=== PATIENT | female | born 1940 | race Caucasian/White ===

== ENCOUNTER 2017-02-24 18:06 | Inpatient (IN) | payer MEDICARE, OTHER ==
[~2017-02-24] VITALS: Ht 152.4 cm; Wt 61.2 kg
[2017-02-24] MEDS ORDERED: ALBU18HF2 IH (18:29)
[2017-02-24] MEDS ORDERED: QUET100T PO (18:29)
[2017-02-24] MEDS ORDERED: LORA1TAB PO (18:29)
[2017-02-24] MEDS ORDERED: DOCU-270 PO (18:29)
[2017-02-24] MEDS ORDERED: AZIT250T6 PO (18:29)
[2017-02-24] MEDS ORDERED: HYDR-548 PO (18:29)
[2017-02-24] MEDS ORDERED: TRAZ-144 PO (18:29)
[2017-02-24] MEDS ORDERED: DIVA125C PO (18:29)
[2017-02-24] MEDS ORDERED: MAGNESIUM HYDROXIDE 30 ML UDC PO PRN (18:30)
[2017-02-24] MEDS ORDERED: TEMAZEPAM 7.5 MG CAPSULE PO PRN (18:30)
[2017-02-24] MEDS ORDERED: FAMO20TA41 PO (18:31)
[2017-02-24] MEDS ORDERED: BETA5DRO3 EACHEYE (18:31)
[2017-02-24] MEDS ORDERED: DORZ10DR8 EACHEYE (18:31)
[2017-02-24] MEDS ORDERED: MAGN400O6 PO (18:31)
--- NOTE | 2017-02-24 19:06 | NUR ---
PT. ARRIVED IN THE UNIT VIA AMBULANCE AND TRANSPORTED VIA A GURNEY. PT. CAME FROM [facility]. PT. IS 76 YEARS OLD FEMALE ADMITTED [address] DTO [address] GD[address] ATKINSON NOTIFIED ABOUT THE ADMISSION AND GAVE ORDERS. V/S TAKEN AND CONTRABAND DONE AND ENDORSED TO THE NEXT SHIFT FOR THE COMPLETION OF ART ADMISSION.
--- NOTE | 2017-02-24 19:20 | NUR ---
ADMITTED 76 Y/O FEMALE FROM [facility] , ON 5150 HOLD, DTO AND GD, BASED ON HOLD, PATIENT IS VERY AGITATED W/ DEMENTIA. PATIENT IS YELLING AND SCREAMING THAT SHE'S WALKING OUT OF THE ER. ACCORDING TO THE CAREGIVER, PATIENT HAS BEEN INCREASINGLY AGITATED, HITTING HER, CHOKING HER AND THROWING CERAMIC PLATES AT HER. PATIENT HAS BEEN WANDERING OUTSIDE OF THE HOUSE. PATIENT ADMITTING DX. PSYCHOSIS AND MEDICAL DX. DEMENTIA AND OSTEOARTHRISTIS. UPON FACE TO FACE EVALUATION, PATIENT APPEARED ALERT AND ORIENTED X 1, ANXIOUS, PARANOID, EASILY AGITATED AND UNCOOPERATIVE. NO SOB, NO ACUTE DISTRESS, BREATHING EVEN AND UNLABORED, NO S/S OF PAIN AND DISCOMFORT, PATIENT REFUSED TO SIGN PAPER WORKS, BELONGINGS AND CONTRABAND INSPECTED AND PLACED ON THE LOCKED CABINET. NOTIFIED DR. JOE TO RECONCILE MEDICATION. NOTIFIED NIRAV GONZALEZ (NEXT OF KIN). WILL CONTINUE TO MONITOR V75DATC FOR SAFETY
[2017-02-24 20:00] VITALS: BP 121/92
[2017-02-24 22:12] VITALS: BP 120/58
[2017-02-25] MEDS: MAG HYDROX/AL HYDROX/SIMETH 30 ML UDC PO PRN (06:57)
--- NOTE | 2017-02-25 06:59 | NUR ---
GPS RN NOTE: PATIENT NOTED WITH EPISODES OF VOMITING MODERATE AMOUNT OF GREENISH LIQUID VOMITUS AFTER DIAPER CHANGE. PATIENT ALSO NOTED LARGE FORM SOFT BM. PATIENT C/O PAIN IN THE STOMACH AND FEELING SICK. V/S NM=679/77 P=107 R=20 T=98.8. MAALOX 30 CC GIVEN FOR STOMACH UPSET. KEPT CLEAN, DRY AND COMFORTABLE. WILL CONTINUE TO MONITOR
--- NOTE | 2017-02-25 07:13 | NUR ---
GPS RN NOTE: NOTIFIED NP. DOMENICO OROZCO AND RECEIVED AND ORDER OF ZOFRAN 4MG SL [id number] PRN FOR NAUSEA AND VOMITING NOTED AND CARRIED OUT.
[2017-02-25] MEDS ORDERED: ONDANSETRON 4 MG TAB.RAPDIS SL PRN (07:30)
[2017-02-25 08:48] VITALS: BP 131/90
[2017-02-25] MEDS: Z GUARD REMEDY 2 OZ OINT TP SCH ×2 (09:00→20:26)
[2017-02-25 12:19] LABS: ALBUMIN 4.6 g/dL (3.4-5.0); BILIRUBIN,TOTAL 2.8 mg/dL (0.2-1.0); CALCIUM, SERUM 10.3 mg/dL (8.5-10.1); CREATININE 1.1 mg/dL (0.6-1.3); POTASSIUM 4.1 mmol/L (3.5-5.1); TOTAL PROTEIN, SERUM 8.4 g/dL (6.4-8.2)
[2017-02-25] MEDS: DIVALPROEX SODIUM 125 MG CAP.SPRINK PO SCH ×2 (13:09→16:33)
[2017-02-25] MEDS: QUETIAPINE FUMARATE 25 MG TABLET PO SCH ×2 (13:09→16:33)
[2017-02-25 16:00] VITALS: BP 126/79
[2017-02-25] MEDS ORDERED: IV NS 0.9% 1,000 ML IV ONE (16:30)
--- NOTE | 2017-02-25 18:15 | NUR ---
[id number]: NOTIFIED DR. GARCIA THAT PT NEEDS MED RECON.
[2017-02-25 20:42] VITALS: BP 132/80
[2017-02-25] MEDS: TRAZODONE 50 MG TABLET PO SCH (21:08)
[2017-02-25] MEDS ORDERED: QUETIAPINE FUMARATE 100 MG TABLET PO SCH (22:00)
[2017-02-26 07:16] LABS: BASOPHILS % (AUTO) 0.3 % (0.0-2.0); EOSINOPHILS % (AUTO) 0.2 % (0.0-6.0); HEMATOCRIT 49 % (33-45); HEMOGLOBIN 16.9 g/dL (11.5-14.8); LYMPHOCYTES # (AUTO) 1.6 /CMM (0.8-4.8); LYMPHOCYTES % (AUTO) 14.9 % (20.0-44.0); MEAN CORPUSCULAR HEMOGLOBIN 31 PG (26.0-33.0); MEAN CORPUSCULAR HGB CONC 34 g/dl (31.0-36.0); MEAN CORPUSCULAR VOLUME 91 fL (82-100); MONOCYTES # (AUTO) 0.8 /CMM (0.1-1.30); MONOCYTES % (AUTO) 6.9 % (2.0-12.0); NEUTROPHILS # (AUTO) 8.6 /CMM (1.8-8.9); NEUTROPHILS % (AUTO) 77.7 % (43.0-81.0); PLATELET COUNT (AUTO) 251 /CMM (150-450); RDW COEFFICIENT OF VARIATION 13.4 (11.5-15.0); RED BLOOD CELL COUNT(AUTO) 5.43 MIL/uL (4.0-5.2)
[2017-02-26] MEDS ORDERED: ALBUTEROL FS 2.5 MG/0.5 ML VIAL.NEB NEB PRN (07:35)
[2017-02-26 07:40] LABS: MAGNESIUM 2.2 mg/dL (1.8-2.4); PHOSPHORUS 3.4 mg/dL (2.5-4.9)
[2017-02-26 07:45] LABS: CALCIUM, SERUM 9.2 mg/dL (8.5-10.1); CREATININE 0.7 mg/dL (0.6-1.3); POTASSIUM 4.1 mmol/L (3.5-5.1)
[2017-02-26 08:00] VITALS: BP 118/89
[2017-02-26] MEDS: QUETIAPINE FUMARATE 25 MG TABLET PO SCH ×4 (08:14→16:18)
[2017-02-26] MEDS: DIVALPROEX SODIUM 125 MG CAP.SPRINK PO SCH ×4 (08:14→16:18)
[2017-02-26] MEDS: DOCUSATE SODIUM 100 MG CAPSULE PO SCH (08:22)
[2017-02-26] MEDS: BETAXOLOL 0.25% EACHEYE SCH ×2 (09:00→16:18)
[2017-02-26] MEDS: DORZOLAMIDE OPTH 2% 10 ML BOTTLE EACHEYE SCH ×2 (09:00→21:42)
[2017-02-26] MEDS: Z GUARD REMEDY 2 OZ OINT TP SCH ×2 (09:00→21:45)
--- NOTE | 2017-02-26 15:51 | NUR ---
GPS RN NOTE: PATIENT WAS SEEN AND EXAMINE BY Yaya ACUÑA PT CONDITION LABS REPORTED TO DOMENICO Styles PT REFUSING TO EAT DRINKING ONLY NO NEW ORDERS AT THIS TIME
[2017-02-26 16:00] VITALS: BP 100/78
--- NOTE | 2017-02-26 16:19 | NUR ---
GPS RN NOTE: PATIENT IN THE ROOM SITTING IN BED WITH 1:1 SITTER AT THE SIDE PT VERBALLY ABUSIVE AND EASILY AGITATED SPIT UP ALL MEDICATIONS REFUSING TO TAKE THEM WILL CONTINUE MONITORING FOR SAFETY AND BEHAVIOR
[2017-02-26] MEDS: BOOST PLUS FOOD-CHOCLATE 237 ML BOX PO SCH (18:10)
[2017-02-26 21:05] VITALS: BP 112/80
[2017-02-26] MEDS: TRAZODONE 50 MG TABLET PO SCH (21:42)
[2017-02-26] MEDS: MUPIROCIN OINT 2% 22 GM TUBE SCH (21:42)
[2017-02-27 07:04] LABS: BASOPHILS % (AUTO) 0.1 % (0.0-2.0); EOSINOPHILS % (AUTO) 0.3 % (0.0-6.0); HEMATOCRIT 49 % (33-45); HEMOGLOBIN 16.5 g/dL (11.5-14.8); LYMPHOCYTES # (AUTO) 2.3 /CMM (0.8-4.8); LYMPHOCYTES % (AUTO) 19.2 % (20.0-44.0); MEAN CORPUSCULAR HEMOGLOBIN 31 PG (26.0-33.0); MEAN CORPUSCULAR HGB CONC 34 g/dl (31.0-36.0); MEAN CORPUSCULAR VOLUME 92 fL (82-100); MONOCYTES # (AUTO) 0.7 /CMM (0.1-1.30); MONOCYTES % (AUTO) 6.3 % (2.0-12.0); NEUTROPHILS # (AUTO) 8.7 /CMM (1.8-8.9); NEUTROPHILS % (AUTO) 74.1 % (43.0-81.0); PLATELET COUNT (AUTO) 267 /CMM (150-450); RDW COEFFICIENT OF VARIATION 13.4 (11.5-15.0); WHITE BLOOD COUNT (AUTO) 11.7 K/uL (4.3-11.0)
[2017-02-27 07:16] LABS: CALCIUM, SERUM 9.6 mg/dL (8.5-10.1); CREATININE 0.8 mg/dL (0.6-1.3); MAGNESIUM 1.9 mg/dL (1.8-2.4); PHOSPHORUS 3.1 mg/dL (2.5-4.9); POTASSIUM 3.8 mmol/L (3.5-5.1)
[2017-02-27 08:00] VITALS: BP 128/67
[2017-02-27] MEDS: DOCUSATE SODIUM 100 MG CAPSULE PO SCH (08:39)
[2017-02-27] MEDS: DIVALPROEX SODIUM 125 MG CAP.SPRINK PO SCH ×3 (08:39→16:25)
[2017-02-27] MEDS: QUETIAPINE FUMARATE 25 MG TABLET PO SCH ×3 (08:40→16:25)
[2017-02-27] MEDS: BOOST PLUS FOOD-CHOCLATE 237 ML BOX PO SCH ×2 (08:41→16:28)
[2017-02-27] MEDS: MUPIROCIN OINT 2% 22 GM TUBE SCH ×2 (08:41→21:15)
[2017-02-27] MEDS: DORZOLAMIDE OPTH 2% 10 ML BOTTLE EACHEYE SCH ×2 (08:41→21:15)
[2017-02-27] MEDS: BETAXOLOL 0.25% EACHEYE SCH ×2 (08:41→16:28)
[2017-02-27] MEDS: Z GUARD REMEDY 2 OZ OINT TP SCH ×2 (08:43→21:15)
--- NOTE | 2017-02-27 10:43 | NUR ---
[id number]: NOTIFIED DR. BULLOCK ABOUT LAB VALUES FOR TODAY: 02/27/17: WBC= 11.7, RBC=5.30, HGB= 16.5, HCT- 49, LYMPH %= 19.2, CHLORIDE= 110, ANION GAP= 16, BUN= 28. NO NEW ORDERS GIVEN AT THIS TIME.
--- NOTE | 2017-02-27 11:12 | NUR ---
MIGUEL received a voicemail from [facility] [phone] and she wants to discuss pt's care. MIGUEL will meet with pt. today and will call back.
[2017-02-27] MEDS: clonazePAM 0.5 MG TABLET PO PRN (14:40)
[2017-02-27 16:00] VITALS: BP 100/68
--- NOTE | 2017-02-27 16:28 | NUR ---
Initial discharge plan: Pt has been in an out of nursing homes and hospitals and recently was living with her partner/DPOA Suzi Anderson [phone] [place] [address] but unable to return at this time. Suzi is unable to take care of her and will not be able to accept her back home. SW will follow up with MD and will find appropriate placement for pt. SW will help form safe and proper discharge.
[2017-02-27 20:00] VITALS: BP 126/64
[2017-02-27] MEDS: TRAZODONE 50 MG TABLET PO SCH (22:47)
[2017-02-28 08:00] VITALS: BP 135/80
[2017-02-28] MEDS: QUETIAPINE FUMARATE 25 MG TABLET PO SCH ×3 (08:19→16:44)
[2017-02-28] MEDS: DIVALPROEX SODIUM 125 MG CAP.SPRINK PO SCH ×3 (08:19→16:44)
[2017-02-28] MEDS: DOCUSATE SODIUM 100 MG CAPSULE PO SCH (08:19)
[2017-02-28] MEDS: DORZOLAMIDE OPTH 2% 10 ML BOTTLE EACHEYE SCH ×2 (08:20→21:33)
[2017-02-28] MEDS: BETAXOLOL 0.25% EACHEYE SCH ×2 (08:21→16:47)
[2017-02-28] MEDS: MUPIROCIN OINT 2% 22 GM TUBE SCH ×2 (08:21→21:33)
[2017-02-28] MEDS: BOOST PLUS FOOD-CHOCLATE 237 ML BOX PO SCH ×2 (08:22→16:47)
[2017-02-28] MEDS: Z GUARD REMEDY 2 OZ OINT TP SCH ×2 (08:29→21:33)
--- NOTE | 2017-02-28 15:04 | NUR ---
MIGUEL faxed a referral to [facility] ([facility]) [address] [facility], [place] [address] . Will follow up with December from the facility . Addendum: 03/05/17 at 1039 by DENA RIVERA Per December from [facility], pt is accepted.
[2017-02-28 16:18] VITALS: BP 115/69
[2017-02-28 20:19] VITALS: BP 112/63
[2017-02-28 20:33] VITALS: BP 104/72
[2017-02-28] MEDS: ACETAMINOPHEN 325 MG TABLET PO PRN (20:44)
[2017-02-28] MEDS: clonazePAM 0.5 MG TABLET PO PRN (20:44)
[2017-02-28] MEDS: TRAZODONE 50 MG TABLET PO SCH (21:31)
[2017-03-01] MEDS: BETAXOLOL 0.25% EACHEYE SCH ×2 (08:25→17:24)
[2017-03-01] MEDS: DORZOLAMIDE OPTH 2% 10 ML BOTTLE EACHEYE SCH ×2 (08:25→20:20)
[2017-03-01] MEDS: DIVALPROEX SODIUM 125 MG CAP.SPRINK PO SCH ×2 (08:26→16:42)
[2017-03-01] MEDS: QUETIAPINE FUMARATE 25 MG TABLET PO SCH ×3 (08:26→16:42)
[2017-03-01] MEDS: DOCUSATE SODIUM 100 MG CAPSULE PO SCH (08:26)
[2017-03-01] MEDS: MUPIROCIN OINT 2% 22 GM TUBE SCH ×2 (08:26→20:20)
[2017-03-01 08:49] VITALS: BP 128/75
[2017-03-01] MEDS: BOOST PLUS FOOD-CHOCLATE 237 ML BOX PO SCH ×2 (09:27→17:24)
[2017-03-01] MEDS: Z GUARD REMEDY 2 OZ OINT TP SCH ×2 (10:29→20:20)
--- NOTE | 2017-03-01 12:38 | NUR ---
GPS/RN PATIENT REFUSED SEROQUEL 25 MG X 3, EXPLAINED RISKS AND BENEFITS, WILL CONTINUE TO ENCOURAGE TO COMPLY WITH MD REGIMEN.
--- NOTE | 2017-03-01 16:17 | NUR ---
Per pt's partner Suzi's request [phone] MIGUEL faxed referrals to [facility] [address] [facility] [address] and [facility] [address] [place] [address] . Will follow up Addendum: 03/02/17 at 1031 by DENA RIVERA Per Bertha from [facility], pt is not accepted due to her behavior. Addendum: 03/05/17 at 1026 by DENA RIVERA Telly Go from [facility], pt cannot be accepted due to chronic nicotine use.
[2017-03-01 16:22] VITALS: BP 96/74
[2017-03-01 20:00] VITALS: BP 105/61
--- NOTE | 2017-03-01 20:00 | NUR ---
RN NOTES: PER DAY EMILEE POOLE, RESULT OF TODAYS LAB WERE RELAYED TO DR BULLOCK, NO NEW ORDERS RECEIVED,
[2017-03-01] MEDS: clonazePAM 0.5 MG TABLET PO PRN (20:19)
--- NOTE | 2017-03-01 20:21 | NUR ---
prn klonopin: prn klonopin 0.25mg tab administered to the pt at this time, as pt agitated, sitter at bed side, vs taken and recorded, will continue to monitor
--- NOTE | 2017-03-01 20:35 | NUR ---
RN INITIAL NOTES: PT IN THE ROOM, A/O X1-2, WITH 1:1 SITTER AT BED SIDE, HIGH RISK FOR FALL,PT NOTED TO HAVE IMPULSIVE BEHAVIOR, , NOTED TO BE EASILY AGITATED, IRRITABLE, PARANOID, "I WILL ONLY EAT WHEN I GET HOME" PT VERBALIZED, PT DENIES ANY SUICIDAL IDEATION. PT TAKES ALL HER NIGHT MEDICATION. WILL CONTINUE TO MONITOR PT [id number] FOR SAFETY AND CHANGES IN BEHAVIOR
--- NOTE | 2017-03-01 20:40 | NUR ---
assessment: pt noted to have right fa iv access covered with kerlix, s/p 1l ns bolus given on
--- NOTE | 2017-03-01 21:05 | NUR ---
RN NOTES: CONTACTED DR CHAWLA REGARDING PT HAVIONG LOOSE STOOLS 5X ALREADY, PER MD TO GIVE IMODIUM 2MG PO Q4HR PRN
[2017-03-01] MEDS ORDERED: LOPERAMIDE HCL (2 MG CAP) 2 MG CAPSULE PO ONE (21:06)
[2017-03-01] MEDS: TRAZODONE 50 MG TABLET PO SCH (21:14)
--- NOTE | 2017-03-01 21:14 | NUR ---
PRN IMODIUM: PT HAD LOOSE STOOLS , 5BM, PRN IMODIUM 2MG CAP ADMINISTERED AT THIS TIME, ENCOURAGE PT TO INCREASE FLUID INTAKE, WILL CONTINUE TO MONITOR
[2017-03-01] MEDS ORDERED: LOPERAMIDE HCL (2 MG CAP) 2 MG CAPSULE PO PRN (21:30)
[2017-03-01 22:00] VITALS: BP 105/61
--- NOTE | 2017-03-01 22:00 | NUR ---
ASSESSMENT: NOTED PT'S HR ELEVATED, 122, RECHECK AFTER GIVING MEDICATION NOW ITS 100. PT CALM, APPEARS COMFORTABLE, WILL CONTINUE TO MONITOR
--- NOTE | 2017-03-02 | NUR ---
RN NOTES: PT AWAKE, OFFERED HER SLEEPING PILL, BUT PT REFUSED, YELLED AND SAY I DONT NEED IT, EDUCATE PT REGARDING RISK AND BENEFIT, WILL TRY TO OFFER AGAIN LATER
--- NOTE | 2017-03-02 01:00 | NUR ---
RN NOTES: OFFERED RESTORIL, PT SLEEPING PILL BUT PT REFUSED, STATED SHE DOESNT NEED ANYTHING AT THIS TIME AND TO LEAVE HER ALONE, EDUCATION PROVIDED TO THE PT, WILL CONTINUE TO MONITOR AND REASSESS
[2017-03-02 03:30] VITALS: BP 120/78
--- NOTE | 2017-03-02 03:30 | NUR ---
DRINK BOX MECHANIC: VS TAKEN AND RECORDED, PT CURRENTLY AGITATED, PT DENIES ANY HEAD ACHE DIZZINESS OR LIGHT HEADEDNESS, WHEN ASKED IF PT FEELS THAT HER HEART IS RACING, PT ANSWERED "NO", AND THAT SHE FEELS FINE, MARYBEL FORDE WITNESS, 1:1 SITTER, WILL GIVE PRN KLONOPIN, WILL CONTINUE TO MONITOR
[2017-03-02] MEDS: clonazePAM 0.5 MG TABLET PO PRN ×2 (03:46→20:06)
--- NOTE | 2017-03-02 03:47 | NUR ---
PRN KLONOPIN: PRN KLONOPIN 0.25 MG TAB ADMINISTERED TO THE PT AT THIS TIME FOR AGITATION, PT TRYING TO GET OUT OF BED STATING SHE WILL GO HOME NOW, WILL CONTINUE TO MONITOR AND REASSESS
[2017-03-02 06:05] VITALS: BP 127/74
--- NOTE | 2017-03-02 06:33 | NUR ---
RN CLOSING NOTES: PT IN BED, AWAKE, WITH PERIODS OF ON AND OFF AGITATION, UNCOOPERATIVE, WITH IMPULSIVE BEHAVIOR, PT HAS 1:1 SITTER AT BED SIDE, VS REMAINS STABLE, NEEDS ATTENDED, WILL ENDORSE TO DAY RN FOR DANUTA.
[2017-03-02 08:00] VITALS: BP 106/69
[2017-03-02] MEDS: BOOST PLUS FOOD-CHOCLATE 237 ML BOX PO SCH ×2 (08:30→17:34)
[2017-03-02] MEDS: DIVALPROEX SODIUM 125 MG CAP.SPRINK PO SCH ×2 (08:49→16:39)
[2017-03-02] MEDS: DOCUSATE SODIUM 100 MG CAPSULE PO SCH (08:49)
[2017-03-02] MEDS: QUETIAPINE FUMARATE 25 MG TABLET PO SCH ×2 (08:49→16:40)
[2017-03-02] MEDS: MUPIROCIN OINT 2% 22 GM TUBE SCH ×2 (08:55→21:12)
[2017-03-02] MEDS: DORZOLAMIDE OPTH 2% 10 ML BOTTLE EACHEYE SCH ×2 (08:56→21:12)
[2017-03-02] MEDS: BETAXOLOL 0.25% EACHEYE SCH ×2 (09:00→16:45)
[2017-03-02] MEDS: Z GUARD REMEDY 2 OZ OINT TP SCH ×2 (09:02→20:11)
[2017-03-02 16:00] VITALS: BP 125/74
[2017-03-02 20:00] VITALS: BP 116/53
[2017-03-02] MEDS: TRAZODONE 50 MG TABLET PO SCH (21:11)
[2017-03-03 08:00] VITALS: BP 112/76
[2017-03-03] MEDS: DOCUSATE SODIUM 100 MG CAPSULE PO SCH (08:34)
[2017-03-03] MEDS: DIVALPROEX SODIUM 125 MG CAP.SPRINK PO SCH ×2 (08:34→16:27)
[2017-03-03] MEDS: QUETIAPINE FUMARATE 25 MG TABLET PO SCH ×3 (08:34→16:27)
[2017-03-03] MEDS: DORZOLAMIDE OPTH 2% 10 ML BOTTLE EACHEYE SCH ×2 (08:35→21:38)
[2017-03-03] MEDS: BETAXOLOL 0.25% EACHEYE SCH ×2 (08:35→16:29)
[2017-03-03] MEDS: Z GUARD REMEDY 2 OZ OINT TP SCH ×2 (08:35→21:37)
[2017-03-03] MEDS: MUPIROCIN OINT 2% 22 GM TUBE SCH ×2 (08:35→21:38)
[2017-03-03] MEDS: BOOST PLUS FOOD-CHOCLATE 237 ML BOX PO SCH ×2 (08:41→16:35)
--- NOTE | 2017-03-03 19:30 | NUR ---
GPS RN NOTE, RECEIVED PATIENT AWAKE AND IN BED, NO S/S OR COMPLAINTS OF PAIN AT THIS TIME. PATIENT IS DISPLAYING NO S/S OF APPARENT DISTRESS AT THIS TIME. PATIENT BREATHING IS UNLABORED WITH EQUAL RISE AND FALL OF THE CHEST. PATIENT IS ALERT AND ORIENTED X 1 ON ROOM AIR WITH A SPO2 95%. PATIENT COMPLIANT WITH MEDICATION, DEPRESSED, UNCOOPERATIVE, PARANOID, GUARDED, CONFUSED, AND NEEDS REORIENTATION. PATIENT HAS A 1 TO 1 SITTER FOR FALL. PATIENT IS ON ISOLATION FOR MRSA STRICT PRECAUTIONS UPHELD. PATIENT DENIES SUICIDE AND HOMICIDAL IDEATIONS AT THIS TIME. PATIENT ASSISTED WITH TURNING AND REPOSITIONING Q2HR AND PRN FOR COMFORT AND CIRCULATION. PATIENT HAS NO NEEDS AT THIS TIME. PATIENT EDUCATED ON THE USE OF THE CALL FLORES. PATIENT BED SIDE RAILS UP X2 FOR SAFETY, BED IS LOCKED AND LOW WILL CONTINUE TO MONITOR AND MAINTAIN SAFETY.
[2017-03-03 20:00] VITALS: BP 96/70
[2017-03-03] MEDS: TRAZODONE 50 MG TABLET PO SCH (21:39)
[2017-03-04 08:00] VITALS: BP 112/67
[2017-03-04] MEDS: DORZOLAMIDE OPTH 2% 10 ML BOTTLE EACHEYE SCH ×2 (09:00→20:32)
[2017-03-04] MEDS: DOCUSATE SODIUM 100 MG CAPSULE PO SCH (09:21)
[2017-03-04] MEDS: QUETIAPINE FUMARATE 25 MG TABLET PO SCH ×3 (09:21→16:49)
[2017-03-04] MEDS: DIVALPROEX SODIUM 125 MG CAP.SPRINK PO SCH ×2 (09:22→16:49)
[2017-03-04] MEDS: BOOST PLUS FOOD-CHOCLATE 237 ML BOX PO SCH ×2 (09:22→16:49)
[2017-03-04] MEDS: BETAXOLOL 0.25% EACHEYE SCH ×2 (09:27→16:55)
[2017-03-04] MEDS: MUPIROCIN OINT 2% 22 GM TUBE SCH ×2 (09:31→20:32)
[2017-03-04] MEDS: Z GUARD REMEDY 2 OZ OINT TP SCH ×2 (09:31→20:33)
[2017-03-04 16:08] VITALS: BP 100/64
[2017-03-04] MEDS: ACETAMINOPHEN 325 MG TABLET PO PRN (20:31)
[2017-03-04 20:45] VITALS: BP 95/75
[2017-03-04] MEDS: TRAZODONE 50 MG TABLET PO SCH (21:50)
[2017-03-05 08:00] VITALS: BP 102/75
[2017-03-05] MEDS: QUETIAPINE FUMARATE 25 MG TABLET PO SCH (08:55)
[2017-03-05] MEDS: DOCUSATE SODIUM 100 MG CAPSULE PO SCH (08:56)
[2017-03-05] MEDS: clonazePAM 0.5 MG TABLET PO PRN (08:56)
[2017-03-05] MEDS: DIVALPROEX SODIUM 125 MG CAP.SPRINK PO SCH ×3 (08:56→16:31)
[2017-03-05] MEDS: Z GUARD REMEDY 2 OZ OINT TP SCH ×2 (09:01→20:22)
[2017-03-05] MEDS: MUPIROCIN OINT 2% 22 GM TUBE SCH ×2 (09:02→20:20)
[2017-03-05] MEDS: BETAXOLOL 0.25% EACHEYE SCH ×2 (09:02→16:54)
[2017-03-05] MEDS: DORZOLAMIDE OPTH 2% 10 ML BOTTLE EACHEYE SCH ×2 (09:02→20:21)
[2017-03-05] MEDS: BOOST PLUS FOOD-CHOCLATE 237 ML BOX PO SCH ×2 (09:05→16:32)
[2017-03-05] MEDS: ACETAMINOPHEN 325 MG TABLET PO PRN (15:17)
[2017-03-05 16:26] VITALS: BP 100/66
[2017-03-05] MEDS: QUETIAPINE FUMARATE 100 MG TABLET PO SCH (16:32)
[2017-03-05 20:52] VITALS: BP 96/60
[2017-03-05] MEDS: TRAZODONE 50 MG TABLET PO SCH (21:15)
[2017-03-06 08:00] VITALS: BP 113/71
[2017-03-06] MEDS: BOOST PLUS FOOD-CHOCLATE 237 ML BOX PO SCH ×2 (08:00→17:56)
[2017-03-06] MEDS: DIVALPROEX SODIUM 125 MG CAP.SPRINK PO SCH ×2 (09:00→17:53)
[2017-03-06] MEDS: DOCUSATE SODIUM 100 MG CAPSULE PO SCH (09:00)
[2017-03-06] MEDS: QUETIAPINE FUMARATE 100 MG TABLET PO SCH ×2 (09:00→17:53)
[2017-03-06] MEDS: DORZOLAMIDE OPTH 2% 10 ML BOTTLE EACHEYE SCH ×2 (09:03→21:20)
[2017-03-06] MEDS: BETAXOLOL 0.25% EACHEYE SCH ×2 (09:03→17:56)
[2017-03-06] MEDS: Z GUARD REMEDY 2 OZ OINT TP SCH ×2 (09:04→21:21)
[2017-03-06 16:00] VITALS: BP 100/66
[2017-03-06] MEDS: clonazePAM 0.5 MG TABLET PO PRN (19:47)
--- NOTE | 2017-03-06 19:47 | NUR ---
GPS RN NOTE, PATIENT HAS A COMPLAINT OF FEELING ANXIOUS AND WOULD LIKE MEDICATION TO HELP CALM HER DOWN. PATIENT VITAL SIGNS ARE STABLE. GAVE KLONOPIN 0.25MG PO Q4HR PRN ORDERED. WILL REASSESS FOR ANXIETY AND I WILL CONTINUE TO MONITOR THIS PATIENT.
[2017-03-06 19:59] VITALS: BP 106/77
[2017-03-06] MEDS: TRAZODONE 50 MG TABLET PO SCH (21:20)
[2017-03-07 07:19] LABS: BASOPHILS % (AUTO) 0.3 % (0.0-2.0); EOSINOPHILS # (AUTO) 0.2 /CMM (0.0-0.7); EOSINOPHILS % (AUTO) 3.5 % (0.0-6.0); HEMATOCRIT 42 % (33-45); HEMOGLOBIN 14.6 g/dL (11.5-14.8); LYMPHOCYTES # (AUTO) 1.9 /CMM (0.8-4.8); LYMPHOCYTES % (AUTO) 28.5 % (20.0-44.0); MEAN CORPUSCULAR HEMOGLOBIN 31 PG (26.0-33.0); MEAN CORPUSCULAR HGB CONC 34 g/dl (31.0-36.0); MEAN CORPUSCULAR VOLUME 90 fL (82-100); MONOCYTES # (AUTO) 0.6 /CMM (0.1-1.30); MONOCYTES % (AUTO) 9.3 % (2.0-12.0); NEUTROPHILS # (AUTO) 3.9 /CMM (1.8-8.9); NEUTROPHILS % (AUTO) 58.4 % (43.0-81.0); PLATELET COUNT (AUTO) 228 /CMM (150-450); RDW COEFFICIENT OF VARIATION 12.6 (11.5-15.0); WHITE BLOOD COUNT (AUTO) 6.7 K/uL (4.3-11.0)
[2017-03-07 07:31] LABS: CALCIUM, SERUM 8.9 mg/dL (8.5-10.1); CARBON DIOXIDE 23 mmol/L (21-32); CHLORIDE 109 mmol/L (98-107); CREATININE 0.7 mg/dL (0.6-1.3); GLUCOSE 95 mg/dL (74-106); POTASSIUM 3.7 mmol/L (3.5-5.1); SODIUM SERUM 143 mmol/L (136-145); UREA NITROGEN, BLOOD 20 mg/dL (7-18)
[2017-03-07 08:00] VITALS: BP 108/79
--- NOTE | 2017-03-07 08:30 | NUR ---
yelling out to sales architect i need a hospital,i have chest pain.vs taken 104/78,98.2,p135,rr 18pox 95%.rn in to tv room to check on pt. states heaviness lt.chest,non-radiating.refuses pain med.
--- NOTE | 2017-03-07 08:40 | NUR ---
call out to dr. hall-orders given.
[2017-03-07] MEDS: MAG HYDROX/AL HYDROX/SIMETH 30 ML UDC PO PRN (08:56)
--- NOTE | 2017-03-07 09:00 | NUR ---
bp 113/65,heart rate 125.
--- NOTE | 2017-03-07 09:30 | NUR ---
ekg,troponin done.
[2017-03-07] MEDS: BOOST PLUS FOOD-CHOCLATE 237 ML BOX PO SCH ×2 (10:09→17:00)
[2017-03-07] MEDS: DIVALPROEX SODIUM 125 MG CAP.SPRINK PO SCH ×3 (10:10→17:18)
[2017-03-07] MEDS: BETAXOLOL 0.25% EACHEYE SCH ×2 (10:10→17:17)
[2017-03-07] MEDS: DORZOLAMIDE OPTH 2% 10 ML BOTTLE EACHEYE SCH (10:10)
[2017-03-07] MEDS: DOCUSATE SODIUM 100 MG CAPSULE PO SCH (10:10)
[2017-03-07] MEDS: QUETIAPINE FUMARATE 100 MG TABLET PO SCH ×2 (10:11→17:18)
[2017-03-07] MEDS: Z GUARD REMEDY 2 OZ OINT TP SCH (11:01)
--- NOTE | 2017-03-07 11:20 | NUR ---
discharge photos done.
--- NOTE | 2017-03-07 11:59 | NUR ---
dr. cooper here,additional orders written.
[2017-03-07] MEDS: ACETAMINOPHEN 325 MG TABLET PO PRN (14:04)
--- NOTE | 2017-03-07 14:04 | NUR ---
medicated for upper back pain with tylenol 650 mg po.
--- NOTE | 2017-03-07 14:53 | NUR ---
Discharge note: Pt will discharge to [facility] ([facility]) [address] [place] [address] via [facility]. Partner/DPBRANDEN Archuletaa Justin [phone] was notified and agreed with discharge plan. Pt. is calm and cooperative and denies suicidal/homicidal ideations at this time. Discharge paperwork has been signed and discharge instructions will be provided to the accepting facility.
--- NOTE | 2017-03-07 15:00 | NUR ---
second mrsa smear done today.
--- NOTE | 2017-03-07 15:20 | NUR ---
two more troponins done-awaiting results as possibly pt. still to be discharged today.
[2017-03-07 16:00] VITALS: BP 130/66
--- NOTE | 2017-03-07 17:35 | NUR ---
given all instructions,all papers given to amb. drivers,along with belongings.report to facility.1700 meds given prior to dc.denies suicidal or homicidal ideation.taken to f[facility]acility via amb.
== END 2017-03-07 17:35 | DRG 885 ==
LOC: GPS 18:06
PROVIDERS: ADMIT Psychiatry & Neurology Psychiatry; ATTEND Internal Medicine
DX: F29 Unspecified psychosis not due to a substance or known physiological condition (principal); N17.0 Acute kidney failure with tubular necrosis; N18.9 Chronic kidney disease, unspecified; E86.0 Dehydration; E88.09 Other disorders of plasma-protein metabolism, not elsewhere classified; F03.90 Unspecified dementia, unspecified severity, without behavioral disturbance, psychotic disturbance, mood disturbance, and anxiety; F17.200 Nicotine dependence, unspecified, uncomplicated; F39 Unspecified mood [affective] disorder; H40.9 Unspecified glaucoma; J44.9 Chronic obstructive pulmonary disease, unspecified; Z79.899 Other long term (current) drug therapy; E80.6 Other disorders of bilirubin metabolism; Z73.6 Limitation of activities due to disability; M94.0 Chondrocostal junction syndrome [Tietze]; R73.9 Hyperglycemia, unspecified
CPT/HCPCS: 36415; 71010-TC; 80048-TC; 80053-TC; 83735-TC; 84100-TC; 84484-TC; 85025-TC; 87081-TC; A6402; J7030; Q0162

== ENCOUNTER → 2017-05-20 | Emergency (ER) | payer MEDICARE, OTHER ==
[~2017-05-20] VITALS: Ht 167.6 cm; Wt 48.1 kg
[~2017-05-20] MED LIST: ALBU18HF2 IH; AZIT250T6 PO; BETA5DRO3 EACHEYE; DOCU-270 PO; DORZ10DR8 EACHEYE; FAMO20TA41 PO; HYDR-548 PO; MAGN400O6 PO; QUET100T PO; TRAZ-144 PO
--- NOTE | 2017-05-20 22:56 | NUR ---
pt biba fr [facility] for rt elbow skin tear w/ witnessed fall out of w/c x1600 today, no ko, sent by PCP for CT head. AOx2 w/ resp even & unlabored, c/o lower back pain w/ nad noted. pt on continuous monitoring w/ bed low to ground & siderails up.
--- NOTE | 2017-05-20 23:53 | NUR ---
pt sent to [facility] via [facility].
--- NOTE | 2017-05-21 00:13 | NUR ---
pt back fr CT.
--- NOTE | 2017-05-21 00:55 | NUR ---
CALLED [facility] FOR BLS TRANSPORT BACK TO FACILITY. ETA 1 HOUR
[2017-05-21 02:05] VITALS: BP 131/80
== END | disposition home or self-care (01) ==
LOC: ER 22:06
DX: S00.03XA Contusion of scalp, initial encounter (principal); F03.90 Unspecified dementia, unspecified severity, without behavioral disturbance, psychotic disturbance, mood disturbance, and anxiety; F41.9 Anxiety disorder, unspecified; H40.9 Unspecified glaucoma; F31.9 Bipolar disorder, unspecified; G47.00 Insomnia, unspecified; Z88.8 Allergy status to other drugs, medicaments and biological substances; W01.198A Fall on same level from slipping, tripping and stumbling with subsequent striking against other object, initial encounter; Y93.89 Activity, other specified; Y92.89 Other specified places as the place of occurrence of the external cause; Y99.9 Unspecified external cause status
CPT/HCPCS: 70450; 99284; A4606; Z7610

== ENCOUNTER 2017-11-07 22:28 | Inpatient (IN) | payer MEDICARE, OTHER ==
[~2017-11-07] VITALS: Ht 167.6 cm; Wt 59.9 kg
[~2017-11-07 22:28] MED LIST changes: +AZIT250T13 PO; -AZIT250T6 PO
[2017-11-08] VITALS: BP 145/86
--- NOTE | 2017-11-08 | NUR ---
GPS SCREEN REPAIRER CRUSHER NOTES ADMITTED THIS 77 YEAR OLD FEMALE ON 5150 HOLD FOR GRAVE DISABILITY. PER HOLD, PATIENT WAS YELLING, BELLIGERENT, NON COMPLIANT AND AGITATED AT HIS BOARD AND CARE. UPON FACE TO FACE PATIENT WAS AGITATED AND ANGRY. DOES NOT TALK BUT YELLS ALL THE TIME. HOWEVER PATIENT WAS COMPLIANT DESPITE BEING ANGRY. VITAL SIGNS CHECKED AND RECORDED. AFEBRILE. PATIENTS BELONGINGS CHECKED FOR CONTRABAND ITEMS. CONTRABAND ITEMS PLACED AT CONTRABAND LOCKER. FULL BODY CHECK AND SKIN ASSESSMENT DONE. BRUISES NOTED ON PATENTS LEFT CHEEK, RIGHT AND LEFT ARMS AND COCCYX. A SCAB WAS ALSO NOTED ON PATIENTS RIGHT ELBOW. PER PATIENT SHE RECENTLY HAD A FALL. PATIENT IS AMBULATORY. ADMISSION PROCESS COMPLETED. WILL CALL NEXT OF KIN IN THE MORNING. WILL DO MRSA SWAB IN AM WELL.
[2017-11-08] MEDS ORDERED: MAG HYDROX/AL HYDROX/SIMETH 30 ML UDC PO PRN (00:30)
[2017-11-08] MEDS ORDERED: MAGNESIUM HYDROXIDE 30 ML UDC PO PRN ×2 (00:30→07:00)
[2017-11-08] MEDS ORDERED: ACETAMINOPHEN 325 MG TABLET PO PRN (00:30)
[2017-11-08] MEDS: TEMAZEPAM 7.5 MG CAPSULE PO PRN ×2 (01:07→22:00)
--- NOTE | 2017-11-08 06:01 | NUR ---
GPS RN NOTES DR. ATKINSON NOTIFIED OF THIS ADMISSION EARLIER BY THAO HEBERT. SPOKE WITH DR. CHAWLA AT O600 REGARDING MED. RECON. CALL PLACED TO NIRAV PATE, NEXT OF KIN, NO ANSWER. VOICEMAIL LEFT ASKING FOR A CALL BACK. WILL ENDORSE TO DAY SHIFT.
--- NOTE | 2017-11-08 06:34 | NUR ---
GPS RN NOTES NIRAV PATE GAVE US A CALL BACK. STATED SHE IS NO LONGER THE PERSON TO BE CALLED AND SHE IS NO LONGER IN THE STATE. CALL MADE TO ROLANDO (DAUGHTER). DAUGHTER MADE AWARE OF THIS ADMISSION.
[2017-11-08 08:00] VITALS: BP 118/62
[2017-11-08] MEDS: clonazePAM 0.5 MG TABLET PO PRN (08:41)
[2017-11-08] MEDS: DOCUSATE SODIUM 100 MG CAPSULE PO SCH ×2 (08:41→08:43)
[2017-11-08] MEDS: FAMOTIDINE (20 MG) 20 MG TABLET PO SCH (08:41)
--- NOTE | 2017-11-08 11:02 | NUR ---
Dr. Bartholomew in the unit notified about the EKG and chest X-Ray results.
[2017-11-08] MEDS: DORZOLAMIDE OPTH 2% 10 ML BOTTLE EACHEYE SCH ×2 (11:13→16:40)
--- NOTE | 2017-11-08 14:15 | NUR ---
Initial Discharge Note: Patient came from a board and care but, according to patient's conservator, patient is unable to return because the conservator feels that the board and care is unable to care for her. MIGUEL called and spoke with the conservator, Susana DupreeMiriam, . Susana stated that perhaps a SNF is necessary for this patient. Susana stated that she will be in to see the patient tomorrow and would like to further discuss the case with SW. Placement is necessary for patient. SW to communicate with MD and to secure safe and proper placement for patient.
--- NOTE | 2017-11-08 14:24 | NUR ---
MIGUEL received a call from patient's daughter, Carleen Tam [phone]. Carleen stated that she wants her mom back in the board and care and that, according to her, the board and care is willing to take her back. MIGUEL asked Carleen to provide an address and telephone number for the board and care. Carleen was able to provide the address [[id number] [place] [address]], but not the phone number.
[2017-11-08] MEDS: BETAXOLOL HCL 0.5% EACHEYE SCH ×2 (15:18→16:40)
--- NOTE | 2017-11-08 16:41 | NUR ---
BETAXOLOL EYE DROP NOT GIVEN BECAUSE THE FIRST DOSE GIVEN AT 1518.
[2017-11-08] MEDS ORDERED: diphenhydrAMINE HCL 50 MG/ML VIAL IM STA (17:20)
[2017-11-08] MEDS ORDERED: LORAZEPAM INJ 2 MG/ML VIAL IM STA (17:20)
[2017-11-08] MEDS ORDERED: OLANZAPINE 10 MG VIAL IM STA (17:20)
--- NOTE | 2017-11-08 17:20 | NUR ---
Pt. threatened other pt. with a walker, highly agitated, aggressive screaming, verbally abusive to staffs and non-redirectable. Dr. Trejo made aware and ordered Ativan 1 mg IM x1, Benadryl 25 mg IM x1 and Zyprexa 5 mg IM x1.
--- NOTE | 2017-11-08 17:34 | NUR ---
Zyprexa 5 mg IM, Ativan 1 mg IM and Zyprexa 5 mg IM given on the right gluteus.
[2017-11-08 20:00] VITALS: BP 115/74
[2017-11-08] MEDS: TRAZODONE 50 MG TABLET PO SCH (22:00)
[2017-11-08] MEDS: QUETIAPINE FUMARATE 100 MG TABLET PO SCH (22:00)
[2017-11-09] MEDS: FAMOTIDINE (20 MG) 20 MG TABLET PO SCH (07:30)
[2017-11-09 08:00] VITALS: BP 112/82
--- NOTE | 2017-11-09 08:07 | NUR ---
WOUND CARE CONSULT WOUND CARE RECEIVED CONSULT FOR RIGHT ELBOW SCAB. WOUND CARE WILL DEFER TO SURGICAL TEAM FOR CONSULT AND TREATMENT PLANS THEY ARE CURRENTLY FOLLOWING. PATIENT WITH DYAN AT 22.
[2017-11-09] MEDS: BETAXOLOL HCL 0.5% EACHEYE SCH ×2 (08:32→17:24)
[2017-11-09] MEDS: DORZOLAMIDE OPTH 2% 10 ML BOTTLE EACHEYE SCH ×2 (08:32→17:24)
[2017-11-09] MEDS: DOCUSATE SODIUM 100 MG CAPSULE PO SCH (08:49)
[2017-11-09] MEDS: clonazePAM 0.5 MG TABLET PO PRN ×2 (15:54→21:12)
[2017-11-09] MEDS: HYDROCODONE/APAP 10/325MG 1 EA TABLET PO PRN (15:55)
[2017-11-09 16:08] VITALS: BP 120/74
[2017-11-09 17:21] LABS: APPEARANCE,URINE CLEAR (CLEAR); BILIRUBIN,URINE NEGATIVE (NEGATIVE); BLOOD, URINE NEGATIVE Ery/uL (NEGATIVE); COLOR,URINE YELLOW (YELLOW); KETONES,URINE NEGATIVE (NEGATIVE); LEUKOCYTE ESTERASE ,URINE NEGATIVE (NEGATIVE); NITRITE, URINE NEGATIVE (NEGATIVE); PH,URINE 6.5 (5.0-8.0); PROTEIN,URINE NEGATIVE (NEGATIVE); UGLUCOSE NEGATIVE (NEGATIVE); UROBILINOGEN,URINE 0.2 EU/dL (0.2)
[2017-11-09 20:00] VITALS: BP 103/65
[2017-11-09] MEDS: QUETIAPINE FUMARATE 100 MG TABLET PO SCH (21:54)
[2017-11-09] MEDS: TRAZODONE 50 MG TABLET PO SCH (21:54)
[2017-11-10] MEDS: clonazePAM 0.5 MG TABLET PO PRN (07:03)
[2017-11-10] MEDS: FAMOTIDINE (20 MG) 20 MG TABLET PO SCH (07:30)
[2017-11-10 08:00] VITALS: BP 132/62
[2017-11-10] MEDS: DOCUSATE SODIUM 100 MG CAPSULE PO SCH (08:33)
[2017-11-10] MEDS: BETAXOLOL HCL 0.5% EACHEYE SCH ×2 (08:33→16:56)
[2017-11-10] MEDS: DORZOLAMIDE OPTH 2% 10 ML BOTTLE EACHEYE SCH ×2 (08:34→16:56)
--- NOTE | 2017-11-10 11:35 | NUR ---
PT. IS HIGHLY AGITATED, AGGRESSIVE, THROWING A WALKER AND PITCHER OF WATER TO STAFFS, VERBALLY ABUSIVE TO STAFFS, YELLING AND SCREAMING AND NOT FOLLOWING DIRECTIONS. DR. VELAZQUEZ GAVE AN ORDER OF ZYREXA 7.5 MG X1 AND ORDERED 1:1 FOR BEHAVIOR AND HIGHLY FALL RISK.
[2017-11-10] MEDS ORDERED: OLANZAPINE 10 MG VIAL IM ONE (12:00)
--- NOTE | 2017-11-10 12:00 | NUR ---
GPS/RN ZYREXA 7.5 MG IM ADMINISTERED ORDERED
[2017-11-10 16:00] VITALS: BP 103/72
[2017-11-10] MEDS: HYDROCODONE/APAP 10/325MG 1 EA TABLET PO PRN (18:57)
[2017-11-10 20:00] VITALS: BP 143/83
[2017-11-10] MEDS: MUPIROCIN OINT 2% 22 GM TUBE SCH (20:07)
[2017-11-10] MEDS: TEMAZEPAM 7.5 MG CAPSULE PO PRN ×2 (20:34→21:16)
--- NOTE | 2017-11-10 20:35 | NUR ---
RESTORIL 7.5MG GIVEN FOR INSOMNIA, WILL CONTINUE TO MONITOR .
[2017-11-10] MEDS: QUETIAPINE FUMARATE 100 MG TABLET PO SCH (21:15)
[2017-11-10] MEDS: TRAZODONE 50 MG TABLET PO SCH (21:16)
[2017-11-11] MEDS: FAMOTIDINE (20 MG) 20 MG TABLET PO SCH ×2 (07:30→08:32)
[2017-11-11 08:18] VITALS: BP 138/60
[2017-11-11] MEDS: DOCUSATE SODIUM 100 MG CAPSULE PO SCH ×2 (08:32→08:39)
[2017-11-11] MEDS: MUPIROCIN OINT 2% 22 GM TUBE SCH ×2 (08:34→21:33)
[2017-11-11] MEDS: BETAXOLOL HCL 0.5% EACHEYE SCH ×2 (08:35→16:32)
[2017-11-11] MEDS: DORZOLAMIDE OPTH 2% 10 ML BOTTLE EACHEYE SCH ×2 (08:35→16:32)
[2017-11-11] MEDS: clonazePAM 0.5 MG TABLET PO PRN (09:34)
--- NOTE | 2017-11-11 09:34 | NUR ---
[id number]: GAVE KLONOPIN 0.5 MG PO DUE TO INCREASED ANXIETY UPON PT REQUEST AND WILL CONTINUE TO MONITOR FOR EFFECTIVENESS OF MEDICATION.
[2017-11-11] MEDS: HYDROCODONE/APAP 10/325MG 1 EA TABLET PO PRN (11:47)
--- NOTE | 2017-11-11 11:47 | NUR ---
[id number]-[id number]: GAVE NORCO 10/325 MG PO DUE TO GENERALIZED PAIN 05/10 UPON PT REQUEST AND WILL CONTINUE TO MONITOR FOR EFFECTIVENESS OF MEDICATION.
[2017-11-11] MEDS: BENZTROPINE MESYLATE (1 MG) 1 MG TABLET PO SCH ×2 (12:40→16:34)
[2017-11-11] MEDS: risperiDONE 1 MG TABLET PO SCH (16:34)
[2017-11-11 16:50] VITALS: BP 100/58
[2017-11-11] MEDS: LIDOCAINE 5% (PATCH) 1 EA PATCH TP SCH (17:16)
[2017-11-11 18:35] LABS: BASOPHILS % (AUTO) 0.5 % (0.0-2.0); EOSINOPHILS # (AUTO) 0.1 /CMM (0.0-0.7); HEMATOCRIT 40 % (33-45); HEMOGLOBIN 13.8 g/dL (11.5-14.8); LYMPHOCYTES # (AUTO) 1.7 /CMM (0.8-4.8); LYMPHOCYTES % (AUTO) 32.9 % (20.0-44.0); MEAN CORPUSCULAR HEMOGLOBIN 31 PG (26.0-33.0); MEAN CORPUSCULAR HGB CONC 34 g/dl (31.0-36.0); MEAN CORPUSCULAR VOLUME 90 fL (82-100); MONOCYTES # (AUTO) 0.6 /CMM (0.1-1.30); MONOCYTES % (AUTO) 10.9 % (2.0-12.0); NEUTROPHILS # (AUTO) 2.8 /CMM (1.8-8.9); NEUTROPHILS % (AUTO) 53.7 % (43.0-81.0); PLATELET COUNT (AUTO) 263 /CMM (150-450); RDW COEFFICIENT OF VARIATION 13.7 (11.5-15.0); RED BLOOD CELL COUNT(AUTO) 4.47 MIL/uL (4.0-5.2); WHITE BLOOD COUNT (AUTO) 5.2 K/uL (4.3-11.0)
[2017-11-11 18:43] LABS: CALCIUM, SERUM 8.8 mg/dL (8.5-10.1); CARBON DIOXIDE 24 mmol/L (21-32); CHLORIDE 107 mmol/L (98-107); CREATININE 0.9 mg/dL (0.6-1.3); GLUCOSE 132 mg/dL (74-106); POTASSIUM 4.1 mmol/L (3.5-5.1); SODIUM SERUM 140 mmol/L (136-145); UREA NITROGEN, BLOOD 22 mg/dL (7-18)
[2017-11-11 19:54] VITALS: BP 118/74
[2017-11-11] MEDS: TRAZODONE 50 MG TABLET PO SCH (21:32)
[2017-11-11] MEDS: QUETIAPINE FUMARATE 100 MG TABLET PO SCH (21:32)
[2017-11-11] MEDS: NITROFURANTOIN/NITROFURAN MAC 100 MG CAPSULE PO SCH (21:32)
--- NOTE | 2017-11-12 01:09 | NUR ---
Pt has been very easily irritable, verbally abusive at times, & unpredictable but med compliant w/o any promptings.
--- NOTE | 2017-11-12 07:30 | NUR ---
[id number]: PT IS ACCUSATORY TOWARDS STAFF, FABRICATING STORIES, UNCOOPERATIVE WITH STAFF, NON-COMPLIANT, NON-REDIRECTABLE, UNABLE TO FOLLOW COMMANDS, VERBALLY ABUSIVE TOWARDS, USING PROFANITIES. WILL CONTINUE TO MONITOR FOR SAFETY AND BEHAVIOR EVERY 15 MINUTES.
[2017-11-12 08:00] VITALS: BP 100/68
[2017-11-12] MEDS ORDERED: OLANZAPINE 10 MG VIAL IM STA ×2 (08:26→10:57)
[2017-11-12] MEDS ORDERED: diphenhydrAMINE HCL 50 MG/ML VIAL IM STA ×2 (08:26→10:57)
[2017-11-12] MEDS ORDERED: LORAZEPAM INJ 2 MG/ML VIAL IM STA ×2 (08:26→10:57)
--- NOTE | 2017-11-12 08:26 | NUR ---
[id number]: PT IS ANXIOUS, RESTLESS, VERBALLY ABUSIVE TOWARDS STAFF, USING PROFANITIES, UNCOOPERATIVE WITH STAFF, THREW A WALKER TOWARDS STAFF. NOTIFIED DR. ATKINSON ABOUT PT'S BEHAVIOR AND DR. ATKINSON ORDERED ZYPREXA 5 MG IM, ATIVAN 1 MG IM, BENADRYL 25 MG.
--- NOTE | 2017-11-12 08:30 | NUR ---
RN-CO: PATIENT TOOK PO AM MEDICATIONS AND CALMER . PROMISED SHE WILL BEHAVE. SHOT WAS NOT GIVEN.
[2017-11-12] MEDS: BETAXOLOL HCL 0.5% EACHEYE SCH ×2 (08:41→16:57)
[2017-11-12] MEDS: DORZOLAMIDE OPTH 2% 10 ML BOTTLE EACHEYE SCH ×2 (08:41→16:57)
[2017-11-12] MEDS: BENZTROPINE MESYLATE (1 MG) 1 MG TABLET PO SCH ×2 (08:42→16:49)
[2017-11-12] MEDS: NITROFURANTOIN/NITROFURAN MAC 100 MG CAPSULE PO SCH ×2 (08:42→21:49)
[2017-11-12] MEDS: FAMOTIDINE (20 MG) 20 MG TABLET PO SCH (08:42)
[2017-11-12] MEDS: MUPIROCIN OINT 2% 22 GM TUBE SCH ×2 (08:42→21:49)
[2017-11-12] MEDS: risperiDONE 1 MG TABLET PO SCH ×2 (08:43→16:49)
[2017-11-12] MEDS: DOCUSATE SODIUM 100 MG CAPSULE PO SCH (08:46)
--- NOTE | 2017-11-12 09:19 | NUR ---
MIGUEL spoke with patient's conservator, Susana Pineda [phone]. Susana stated that she would like patient to be in a SNF. She also requested the facesheet, History + Physical and medication list to be faxed to her. MIGUEL faxed it to fax # [phone]
--- NOTE | 2017-11-12 11:11 | NUR ---
[id number]: PT IS ANXIOUS, RESTLESS, IRRITABLE, UNCOOPERATIVE WITH STAFF, NON-REDIRECTABLE, PT IS THREATENING STAFF WITH HER POSTURE, VERBALLY ABUSIVE, USING PROFANITIES. LESS RESTRICTIVE MEASURES ATTEMPTED, SUCH ESCORTING PT BACK TO ROOM TO DECREASE EXTERNAL STIMULI. BUT PT CONTINUES TO YELL AND USE PROFANITIES TOWARDS STAFF, THREATENS STAFF WITH POSTURING. GAVE ATIVAN 1 MG IM, BENADRYL 25 MG IM, ZYPREXA 5 MG IM. WILL CONTINUE TO MONITOR FOR EFFECTIVENESS OF MEDICATION
--- NOTE | 2017-11-12 13:47 | NUR ---
MIGUEL left a voicemail for patient's interim probate conservator, Susana Pineda [phone] inquiring about faxing detain and treat paperwork. MIGUEL faxed Susana the detain and treat paper, fax #[phone] Addendum: 11/13/17 at 1037 by NANO RIVERA Please note this is probate conservatorship. Per Susana, detain and treat is not needed.
[2017-11-12 16:00] VITALS: BP 117/74
[2017-11-12] MEDS: HYDROCODONE/APAP 10/325MG 1 EA TABLET PO PRN (16:11)
[2017-11-12] MEDS: LIDOCAINE 5% (PATCH) 1 EA PATCH TP SCH (16:49)
[2017-11-12] MEDS: clonazePAM 0.5 MG TABLET PO PRN (17:33)
[2017-11-12 17:36] LABS: CALCIUM, SERUM 8.9 mg/dL (8.5-10.1); CARBON DIOXIDE 24 mmol/L (21-32); CHLORIDE 112 mmol/L (98-107); GLUCOSE 177 mg/dL (74-106); SODIUM SERUM 149 mmol/L (136-145); UREA NITROGEN, BLOOD 21 mg/dL (7-18)
--- NOTE | 2017-11-12 18:44 | NUR ---
[id number]: NOTIFIED WING MAILER MACHINE OPERATOR TIGRE AVALOS ABOUT LAB RESULTS ON 11/12/17: NA= 149, CHLORIDE= 112, BUN= 21. SOFIA AVALOS ORDERED TO ENCOURAGE FLUIDS AND REPEAT BMP FOR TOMORROW
[2017-11-12 19:51] VITALS: BP 90/56
--- NOTE | 2017-11-12 20:00 | NUR ---
WHEN MAKING INITIAL ROUND PATIENT FAMILY COMPLAIN PATIENT HAS A BRUISE ON HER LEFT HAND TOOK THE PIC AND MAKE A INCIDENT REPORT PLACE THE PIC IN FILE PATIENT IS VERY CONFUSED HAS A 1:1 SITTER AT BED SIDE WILL CONTINUES TO MONITOR THE PATIENT EVERY 2 HRS FOR SAFETY.
[2017-11-12] MEDS: TRAZODONE 50 MG TABLET PO SCH (21:48)
[2017-11-12] MEDS: TEMAZEPAM 7.5 MG CAPSULE PO PRN (21:49)
[2017-11-13 08:00] VITALS: BP 109/71
[2017-11-13] MEDS: FAMOTIDINE (20 MG) 20 MG TABLET PO SCH (08:25)
[2017-11-13] MEDS: BENZTROPINE MESYLATE (1 MG) 1 MG TABLET PO SCH ×2 (08:25→17:17)
[2017-11-13] MEDS: QUETIAPINE FUMARATE 100 MG TABLET PO SCH ×2 (08:26→17:17)
[2017-11-13] MEDS: NITROFURANTOIN/NITROFURAN MAC 100 MG CAPSULE PO SCH ×2 (08:26→21:03)
[2017-11-13] MEDS: risperiDONE 1 MG TABLET PO SCH ×2 (08:26→17:17)
[2017-11-13] MEDS: DORZOLAMIDE OPTH 2% 10 ML BOTTLE EACHEYE SCH ×2 (08:27→17:18)
[2017-11-13] MEDS: BETAXOLOL HCL 0.5% EACHEYE SCH ×2 (08:27→17:18)
[2017-11-13] MEDS: MUPIROCIN OINT 2% 22 GM TUBE SCH ×2 (08:27→21:02)
[2017-11-13] MEDS: DOCUSATE SODIUM 100 MG CAPSULE PO SCH (08:32)
[2017-11-13 16:00] VITALS: BP 113/74
[2017-11-13] MEDS: LIDOCAINE 5% (PATCH) 1 EA PATCH TP SCH (17:17)
[2017-11-13 20:28] VITALS: BP 99/63
[2017-11-13] MEDS: TRAZODONE 50 MG TABLET PO SCH (21:03)
[2017-11-13 23:00] VITALS: BP 110/66
--- NOTE | 2017-11-14 06:16 | NUR ---
GPS RN NOTES PT. REFUSED AM LABS , ENCOURAGED FOR LBS , EXPLAIN RISKS AND BENEFITS ,STILL REFUSED LABS.
[2017-11-14] MEDS: FAMOTIDINE (20 MG) 20 MG TABLET PO SCH (07:30)
[2017-11-14 08:00] VITALS: BP 123/73
[2017-11-14] MEDS: NITROFURANTOIN/NITROFURAN MAC 100 MG CAPSULE PO SCH ×2 (08:48→21:17)
[2017-11-14] MEDS: BENZTROPINE MESYLATE (1 MG) 1 MG TABLET PO SCH ×2 (08:48→16:38)
[2017-11-14] MEDS: DOCUSATE SODIUM 100 MG CAPSULE PO SCH (08:48)
[2017-11-14] MEDS: BETAXOLOL HCL 0.5% EACHEYE SCH ×2 (09:02→16:39)
[2017-11-14] MEDS: DORZOLAMIDE OPTH 2% 10 ML BOTTLE EACHEYE SCH ×2 (09:02→16:39)
[2017-11-14] MEDS: MUPIROCIN OINT 2% 22 GM TUBE SCH ×2 (09:02→21:17)
[2017-11-14] MEDS: risperiDONE 1 MG TABLET PO SCH ×2 (09:04→16:38)
--- NOTE | 2017-11-14 13:17 | NUR ---
Discharge Planning: MIGUEL faxed inquiry to [facility] [address], [place] / fax number [phone] Addendum: 11/14/17 at 1352 by NANO RIVERA Per [facility], patient is not accepted into facility.
--- NOTE | 2017-11-14 13:52 | NUR ---
Discharge Planning: faxed inquiry to [facility], [address] [place] [address] / fax number [phone]
--- NOTE | 2017-11-14 14:04 | NUR ---
Discharge Planning: SW left a voicemail for patient's interim probate conservator, Susana Miriam [phone]. SW wanted to provide updates and discuss the discharge plan. SW left her direct contact information in the voicemail.
[2017-11-14 16:05] VITALS: BP 104/53
[2017-11-14] MEDS: LIDOCAINE 5% (PATCH) 1 EA PATCH TP SCH (16:38)
--- NOTE | 2017-11-14 16:46 | NUR ---
gps/rn-notes patient c/o headache,tylenol 650mg p.o given as prn order. will cont. monitoring for safety.
[2017-11-14 20:28] VITALS: BP 112/62
[2017-11-14] MEDS: TRAZODONE 50 MG TABLET PO SCH (21:17)
[2017-11-15 07:12] LABS: CALCIUM, SERUM 9.2 mg/dL (8.5-10.1); CARBON DIOXIDE 22 mmol/L (21-32); CHLORIDE 110 mmol/L (98-107); CREATININE 0.8 mg/dL (0.6-1.3); GLUCOSE 113 mg/dL (74-106); POTASSIUM 3.9 mmol/L (3.5-5.1); SODIUM SERUM 144 mmol/L (136-145); UREA NITROGEN, BLOOD 20 mg/dL (7-18)
[2017-11-15] MEDS: FAMOTIDINE (20 MG) 20 MG TABLET PO SCH (09:12)
[2017-11-15] MEDS: BENZTROPINE MESYLATE (1 MG) 1 MG TABLET PO SCH ×2 (09:12→16:26)
[2017-11-15] MEDS: DOCUSATE SODIUM 100 MG CAPSULE PO SCH (09:12)
[2017-11-15] MEDS: METFORMIN 500 MG TABLET PO SCH ×2 (09:12→16:26)
[2017-11-15] MEDS: MUPIROCIN OINT 2% 22 GM TUBE SCH ×2 (09:12→21:36)
[2017-11-15] MEDS: NITROFURANTOIN/NITROFURAN MAC 100 MG CAPSULE PO SCH ×2 (09:12→21:36)
[2017-11-15] MEDS: risperiDONE 1 MG TABLET PO SCH ×2 (09:15→16:26)
[2017-11-15] MEDS: DORZOLAMIDE OPTH 2% 10 ML BOTTLE EACHEYE SCH ×2 (09:24→16:34)
[2017-11-15] MEDS: BETAXOLOL HCL 0.5% EACHEYE SCH ×2 (09:24→16:33)
--- NOTE | 2017-11-15 09:43 | NUR ---
Discharge Planning: SW was informed by CJ from [facility], [address] [place] [address] / fax number [phone] that patient was accepted into the facility.
--- NOTE | 2017-11-15 09:45 | NUR ---
Discharge Planning: MIGUEL received a call from patient's personal injury attorney, Torres Ramirez, . Torres stated that patient has a court hearing tomorrow regarding her conservatorship and he wanted to confirm that patient will not be attending. Torres also wanted some updates to present at the hearing. MIGUEL then called Kennedi from the public guardians's office, . Kennedi had previously called MIGUEL inquiring if patient will be attending the court hearing tomorrow. MIGUEL informed her that she will not and that her personal injury attorney is aware.
--- NOTE | 2017-11-15 09:47 | NUR ---
Discharge Planning: MIGUEL spoke with patient's interim probate conservator, Susana Christian, and informed her that patient was accepted to [facility]. Susana stated that she does not wish to make any decisions until after the court hearing. Susana stated that, depending on how the hearing goes, patient's friend might be her probate conservator instead of the public guardians office. Susana stated that she does not want to make any decisions until she knows the outcome of the hearing. Susana informed SW that, if patient's friend becomes conservator, then the friend might take patient home and take care of her. SW to follow up with Susana tomorrow.
[2017-11-15 16:00] VITALS: BP 99/81
[2017-11-15] MEDS: LIDOCAINE 5% (PATCH) 1 EA PATCH TP SCH (16:39)
[2017-11-15 20:00] VITALS: BP 143/63
[2017-11-15] MEDS: TRAZODONE 50 MG TABLET PO SCH (21:36)
[2017-11-15] MEDS: TEMAZEPAM 7.5 MG CAPSULE PO PRN (21:36)
[2017-11-16] MEDS: DORZOLAMIDE OPTH 2% 10 ML BOTTLE EACHEYE SCH ×3 (07:45→16:45)
[2017-11-16] MEDS: FAMOTIDINE (20 MG) 20 MG TABLET PO SCH (07:54)
[2017-11-16] MEDS: BETAXOLOL HCL 0.5% EACHEYE SCH ×2 (07:57→16:40)
[2017-11-16] MEDS: NITROFURANTOIN/NITROFURAN MAC 100 MG CAPSULE PO SCH ×2 (07:57→21:26)
[2017-11-16] MEDS: risperiDONE 1 MG TABLET PO SCH ×2 (07:58→16:40)
[2017-11-16] MEDS: DOCUSATE SODIUM 100 MG CAPSULE PO SCH (07:58)
[2017-11-16] MEDS: BENZTROPINE MESYLATE (1 MG) 1 MG TABLET PO SCH ×2 (07:58→16:39)
[2017-11-16] MEDS: MUPIROCIN OINT 2% 22 GM TUBE SCH ×2 (07:58→21:26)
[2017-11-16] MEDS: METFORMIN 500 MG TABLET PO SCH ×2 (07:58→16:39)
[2017-11-16 08:29] VITALS: BP 120/68
--- NOTE | 2017-11-16 09:54 | NUR ---
gps dike supervisor: notes pt refused blood draw x2.
--- NOTE | 2017-11-16 10:16 | NUR ---
Discharge Planning: SW left a voicemail for patient's interim probate conservator through the public [facility] office, Susana Jensen, . MIGUEL called to inquire about outcome of the hearing. MIGUEL provided her direct contact information in the voicemail.
--- NOTE | 2017-11-16 12:06 | NUR ---
Discharge Planning: MIGUEL was contacted by patient's interim probate conservator through the public [facility] office, Susana MartinesJensen, . Susana informed MIGUEL that the hearing was continued to December 14. Susana stated that MIGUEL should proceed with securing SNF placement for patient. Addendum: 11/16/17 at 1208 by NANO RIVERA MIGUEL contacted CJ from [address] [address] to verify that patient has been accepted. MIGUEL waiting for reply.
--- NOTE | 2017-11-16 16:02 | NUR ---
Discharge Planning: SW was contacted by patient's probate conservator through the public [facility] office, Susana Christian, who inquired about the capacity declaration form that she had requested to be filled out by patient's psychiatrist. MIGUEL had left the forms flagged in the chart, had notified SANJEEV Hunter and had directly shown the papers to Dr. Trejo. At that time, Dr. Trejo stated that he will not be filling out those papers. MIGUEL informed Susana of this. Susana stated that, if the forms will not be filled, then she will have to subpoena the attending psychiatrist, as this is "essential to the case." MIGUEL notified Dr. Trejo of this.
[2017-11-16 16:04] VITALS: BP 111/53
--- NOTE | 2017-11-16 16:05 | NUR ---
Discharge Planning: MIGUEL was notified by CJ from [address] [address] that patient was accepted into the facility. MIGUEL to notify conservatorSusana, , of this. MIGUEL to fax approval form for placement on Sunday morning after consulting with sales clerk supervisor.
[2017-11-16] MEDS: LIDOCAINE 5% (PATCH) 1 EA PATCH TP SCH (16:38)
[2017-11-16] MEDS: HYDROCODONE/APAP 10/325MG 1 EA TABLET PO PRN (17:03)
--- NOTE | 2017-11-16 17:04 | NUR ---
RN NOTE: PATIENT REPORTED 8/10 PAIN. HYDROCODONE 10MG GIVEN.
[2017-11-16 20:00] VITALS: BP 107/66
[2017-11-16] MEDS: TRAZODONE 50 MG TABLET PO SCH (21:26)
[2017-11-16] MEDS: clonazePAM 0.5 MG TABLET PO PRN (21:26)
[2017-11-16] MEDS: TEMAZEPAM 7.5 MG CAPSULE PO PRN (22:14)
[2017-11-17] MEDS: DORZOLAMIDE OPTH 2% 10 ML BOTTLE EACHEYE SCH ×2 (09:20→17:10)
[2017-11-17] MEDS: METFORMIN 500 MG TABLET PO SCH ×3 (09:22→17:12)
[2017-11-17] MEDS: risperiDONE 1 MG TABLET PO SCH ×3 (09:22→17:13)
[2017-11-17] MEDS: FAMOTIDINE (20 MG) 20 MG TABLET PO SCH (09:22)
[2017-11-17] MEDS: DOCUSATE SODIUM 100 MG CAPSULE PO SCH (09:22)
[2017-11-17] MEDS: BENZTROPINE MESYLATE (1 MG) 1 MG TABLET PO SCH ×3 (09:22→17:12)
[2017-11-17] MEDS: HYDROCODONE/APAP 10/325MG 1 EA TABLET PO PRN ×2 (09:24→20:05)
[2017-11-17] MEDS: MUPIROCIN OINT 2% 22 GM TUBE SCH ×2 (09:30→20:30)
[2017-11-17] MEDS: BETAXOLOL HCL 0.5% EACHEYE SCH ×2 (11:00→17:09)
[2017-11-17 16:00] VITALS: BP 114/74
[2017-11-17] MEDS: LIDOCAINE 5% (PATCH) 1 EA PATCH TP SCH (17:13)
--- NOTE | 2017-11-17 17:39 | NUR ---
GPS/RN PT REFUSED TO TAKE PO MEDS SCHEDULED FOR 1700. OFFERED X3
[2017-11-17 20:00] VITALS: BP 101/59
[2017-11-17] MEDS: TRAZODONE 50 MG TABLET PO SCH (22:29)
--- NOTE | 2017-11-18 05:33 | NUR ---
Pt remains very easily irritable, verbally abusive at times, & unpredictable but med compliant w/o any promptings.
[2017-11-18] MEDS: FAMOTIDINE (20 MG) 20 MG TABLET PO SCH (07:30)
[2017-11-18 08:01] VITALS: BP 110/61
[2017-11-18] MEDS: DOCUSATE SODIUM 100 MG CAPSULE PO SCH (08:21)
[2017-11-18] MEDS: BETAXOLOL HCL 0.5% EACHEYE SCH ×2 (08:26→16:07)
[2017-11-18] MEDS: DORZOLAMIDE OPTH 2% 10 ML BOTTLE EACHEYE SCH ×2 (08:26→16:07)
[2017-11-18] MEDS: risperiDONE 1 MG TABLET PO SCH ×2 (08:33→16:07)
[2017-11-18] MEDS: METFORMIN 500 MG TABLET PO SCH (08:33)
[2017-11-18] MEDS: BENZTROPINE MESYLATE (1 MG) 1 MG TABLET PO SCH ×2 (08:33→16:06)
[2017-11-18 15:43] VITALS: BP 116/77
[2017-11-18] MEDS: LIDOCAINE 5% (PATCH) 1 EA PATCH TP SCH (16:19)
[2017-11-18] MEDS: HYDROCODONE/APAP 10/325MG 1 EA TABLET PO PRN (18:41)
[2017-11-18 19:49] VITALS: BP 120/72
[2017-11-18] MEDS: TRAZODONE 50 MG TABLET PO SCH (21:41)
--- NOTE | 2017-11-19 03:02 | NUR ---
RN GPS NOTES PT. REFUSED WEEKLY SKIN REASSESSMENT PICTURES ON SACRUM RT BUTTOCK AND LEFT CHEEK, EXPLAINED RISKS AND BENEFITS STILL REFUSED, BUT PT. ALLOWS TO SKIN REASSESS PICTURES ON RIGHT HAND, RIGHT ARM / LEFT HAND, LEFT ARM ,
[2017-11-19 08:00] VITALS: BP 108/61
[2017-11-19] MEDS: DOCUSATE SODIUM 100 MG CAPSULE PO SCH ×2 (09:00→09:36)
[2017-11-19] MEDS: BETAXOLOL HCL 0.5% EACHEYE SCH ×2 (09:36→16:06)
[2017-11-19] MEDS: risperiDONE 1 MG TABLET PO SCH ×2 (09:36→16:06)
[2017-11-19] MEDS: FAMOTIDINE (20 MG) 20 MG TABLET PO SCH (09:36)
[2017-11-19] MEDS: BENZTROPINE MESYLATE (1 MG) 1 MG TABLET PO SCH ×2 (09:36→16:06)
[2017-11-19] MEDS: DORZOLAMIDE OPTH 2% 10 ML BOTTLE EACHEYE SCH ×2 (09:37→16:06)
--- NOTE | 2017-11-19 10:22 | NUR ---
Discharge Planning: SW faxed the placement approval form with the information for [facility], as well as the capacity declaration form filled out by psychiatrist Dr. Trejo, to patient's interim probate conservator, Susana Christian, / fax# [phone]
[2017-11-19 16:00] VITALS: BP 123/73
[2017-11-19] MEDS: LIDOCAINE 5% (PATCH) 1 EA PATCH TP SCH (16:06)
[2017-11-19] MEDS: HYDROCODONE/APAP 10/325MG 1 EA TABLET PO PRN (16:07)
--- NOTE | 2017-11-19 19:00 | NUR ---
RN-CO: Patient is somewhat better, redirectable , no aggression noted today. Dr Trejo discontinued 1:1 sitter.
[2017-11-19 20:24] VITALS: BP 106/56
[2017-11-19] MEDS: TRAZODONE 50 MG TABLET PO SCH (21:10)
[2017-11-19 23:00] VITALS: BP 108/65
[2017-11-20 08:00] VITALS: BP 110/65
[2017-11-20] MEDS: FAMOTIDINE (20 MG) 20 MG TABLET PO SCH (08:11)
[2017-11-20] MEDS: DOCUSATE SODIUM 100 MG CAPSULE PO SCH (08:11)
[2017-11-20] MEDS: risperiDONE 1 MG TABLET PO SCH ×3 (08:11→17:10)
[2017-11-20] MEDS: BENZTROPINE MESYLATE (1 MG) 1 MG TABLET PO SCH ×2 (08:11→17:10)
[2017-11-20] MEDS: BETAXOLOL HCL 0.5% EACHEYE SCH ×2 (08:36→17:13)
[2017-11-20] MEDS: DORZOLAMIDE OPTH 2% 10 ML BOTTLE EACHEYE SCH ×2 (08:36→17:13)
--- NOTE | 2017-11-20 13:57 | NUR ---
Discharge Planning: SW received a voicemail from patient's probate conservator, Susana Christian, / fax# [phone] wanting to discuss the discharge plan. MIGUEL called Susana back and left a voicemail for her with her direct contact information. SW to follow up later in the day.
--- NOTE | 2017-11-20 15:54 | NUR ---
Discharge Planning: SW left another voicemail for patient's probate conservator, Susana Christian, / fax# [phone]
[2017-11-20 16:33] VITALS: BP 130/75
[2017-11-20] MEDS: LIDOCAINE 5% (PATCH) 1 EA PATCH TP SCH (17:00)
[2017-11-20] MEDS: DIVALPROEX SODIUM 250 MG TABLET.DR PO SCH (17:10)
--- NOTE | 2017-11-20 17:30 | NUR ---
GPS/RN PHARMACY AWARE ( SPOKE WITH SIVA) OF NEED TO SEND UP LIDODERM PATCH, AWAITING DELIVERY.
[2017-11-20 20:05] VITALS: BP 132/69
[2017-11-20] MEDS: TRAZODONE 50 MG TABLET PO SCH (21:08)
--- NOTE | 2017-11-20 22:00 | NUR ---
GPS RN NOTES: PATIENT REFUSED BLOOD DRAW, DESPITE OF EXPLANATION RISKS AND BENEFITS BUT PATIENT REFUSED. WILL TRY TO OFFER IT TOMORROW MORNING. MADE AWARE.
[2017-11-20] MEDS: TEMAZEPAM 7.5 MG CAPSULE PO PRN (22:43)
--- NOTE | 2017-11-20 22:43 | NUR ---
GPS RN NOTES: PATIENT UNABLE TO SLEEP. VITAL SIGNS ARE STABLE. RESTORIL 7.5MG PO GIVEN PRN ORDER. WILL CONTINUE TO MONITOR HOUR OF SLEEP.
[2017-11-20] MEDS: clonazePAM 0.5 MG TABLET PO PRN (23:31)
--- NOTE | 2017-11-20 23:31 | NUR ---
GPS RN NOTES: PATIENT IS ANXIOUS, RESTLESS, AGITATED. VITAL SIGNS ARE STABLE. KLONOPIN 0.5MG PO GIVEN PRN ORDER, WILL CONTINUE TO MONITOR [id number] FOR SAFETY AND BEHAVIOR.
[2017-11-21] MEDS: HYDROCODONE/APAP 10/325MG 1 EA TABLET PO PRN (00:49)
--- NOTE | 2017-11-21 00:49 | NUR ---
GPS RN NOTES: PATIENT C/O OF GENERALIZED PAIN, V/S ARE STABLE, HYDROCODONE 5/325MG 1 TAB PO GIVEN PRN ORDER, WILL CONTINUE TO MONITOR AND ASSESS FOR PAIN. Addendum: 11/21/17 at 0128 by NELLI TIPTON RN HYDROCODONE 10/325MG 1 TAB PO GIVEN PRN ORDER.
[2017-11-21] MEDS: FAMOTIDINE (20 MG) 20 MG TABLET PO SCH ×2 (07:30→07:32)
[2017-11-21 07:47] LABS: ALANINE AMINOTRANSFERASE 16 U/L (12-78); ALKALINE PHOSPHATASE 113 U/L (46-116); ASPARTATE AMINOTRANSFERASE 15 U/L (15-37); BILIRUBIN,DIRECT 0.2 mg/dL (0.0-0.2); BILIRUBIN,TOTAL 1.2 mg/dL (0.2-1.0); TOTAL PROTEIN, SERUM 5.6 g/dL (6.4-8.2)
[2017-11-21 07:52] LABS: SERUM AMMONIA 36 umol/L (11-32)
[2017-11-21 08:26] VITALS: BP 100/59
[2017-11-21] MEDS: DOCUSATE SODIUM 100 MG CAPSULE PO SCH ×2 (08:26→09:00)
[2017-11-21] MEDS: risperiDONE 1 MG TABLET PO SCH ×3 (08:26→17:00)
[2017-11-21] MEDS: DIVALPROEX SODIUM 250 MG TABLET.DR PO SCH ×3 (08:26→17:00)
[2017-11-21] MEDS: BENZTROPINE MESYLATE (1 MG) 1 MG TABLET PO SCH ×3 (08:26→17:00)
--- NOTE | 2017-11-21 08:30 | NUR ---
PATIENT REFUSED 0900 MEDS. OFFERED X3.
[2017-11-21 08:32] VITALS: BP 100/59
[2017-11-21 08:53] LABS: THYROID STIMULATING HORMONE < 0.007 uIU/mL (0.358-3.74)
[2017-11-21] MEDS: BETAXOLOL HCL 0.5% EACHEYE SCH ×2 (09:11→17:00)
[2017-11-21] MEDS: DORZOLAMIDE OPTH 2% 10 ML BOTTLE EACHEYE SCH ×2 (09:12→17:00)
--- NOTE | 2017-11-21 11:00 | NUR ---
Discharge Planning: MIGUEL spoke with patient's probate conservator, Susana MartinesJensen, / fax# [phone]. Susana stated that she needed clarification if [facility] is a secured unit. MIGUEL checked with axle inspector Hans who confirmed that [facility] is a secured perimeter and that they have wander guards. MIGUEL informed Susana of this. Susana also requested that the approval form specifies risk factors and that it is signed off by an [employer] ACREAGE MEASURER. MIGUEL spoke with her pot room supervisor, Shivani Del Cid LCSW, and she signed off on it. MIGUEL faxed the approval form and capacity declaration [at the request of Susana] to fax# [phone]. MIGUEL to follow up with Susana.
--- NOTE | 2017-11-21 11:29 | NUR ---
Discharge Planning: MIGUEL spoke with probate conservSusana aranda, / fax# [phone] who stated that she approved and is faxing the signed approval form back to MIGUEL. MIGUEL received the signed approval form from rylie. MIGUEL made a copy of the form and placed it in patient's chart.
--- NOTE | 2017-11-21 13:02 | NUR ---
RN-CO: DR RIVERA (COVERING FOR DR ATKINSON TODAY) ORDERED TO DISCONTINUE HOLD AND DISCHARGE PATIENT TODAY, NOTED.
--- NOTE | 2017-11-21 14:55 | NUR ---
Discharge Note: Patient will be discharged to [address] [address] via ambulance transportation arranged by social services analyst through [facility], trip #[id number]. Discharge is scheduled for 4pm. Patients probate conservator Susana [phone] is aware of and approves the discharge. Susana signed off on the placement. SW placed a copy of signed placement approval form in patient's chart. Upon discharge, patient is cooperative and denies suicidal/homicidal ideation. Patient will be seen by reproduction order processor Dr. Wilcox [address], [place] [address] [phone]. Patient will also be under the care of psychiatrist Dr. Negrete [address], [place] [address] [phone].
[2017-11-21 16:36] VITALS: BP 103/51
[2017-11-21] MEDS: LIDOCAINE 5% (PATCH) 1 EA PATCH TP SCH (17:00)
--- NOTE | 2017-11-21 18:17 | NUR ---
DISCHARGE NOTE: PATIENT LEFT THE UNIT VIA AMBULANCE AT 1810. PATIENT MEDICALLY STABLE. V/S STABLE. PATIENT DENIES SI/HI AT TIME OF DISCHARGE. DR. RIVERA DISCONTINUED HOLD, GAVE DISCHARGE ORDER, AND RECONCILED THE MEDS. DR. OROZCO MADE AWARE AND RECONCILED MEDS. PATIENT REFUSED TO SIGN EXIT PAPERS, REFUSED SKIN ASSESSMENT AND PICTURES. PATIENT LEFT WITH BELONGINGS. EXIT CARE PAPERS GAVE TO PATIENT AND EXPLAINED. REPORT GIVEN TO [facility].
== END 2017-11-21 18:10 | DRG 885 ==
LOC: GPS 22:28
PROVIDERS: ADMIT Psychiatry & Neurology Psychiatry; ATTEND Psychiatry & Neurology Psychiatry
DX: F39 Unspecified mood [affective] disorder (principal); B95.2 Enterococcus as the cause of diseases classified elsewhere; E11.65 Type 2 diabetes mellitus with hyperglycemia; L89.159 Pressure ulcer of sacral region, unspecified stage; G93.40 Encephalopathy, unspecified; F03.91 Unspecified dementia, unspecified severity, with behavioral disturbance; L89.319 Pressure ulcer of right buttock, unspecified stage; F29 Unspecified psychosis not due to a substance or known physiological condition; I10 Essential (primary) hypertension; Z73.6 Limitation of activities due to disability; R23.3 Spontaneous ecchymoses; H40.9 Unspecified glaucoma; Z91.81 History of falling; Z91.19 Patient's noncompliance with other medical treatment and regimen; Z22.322 Carrier or suspected carrier of Methicillin resistant Staphylococcus aureus; G89.29 Other chronic pain
CPT/HCPCS: 36415; 71045-TC; 80048-TC; 80076-TC; 81000-TC; 82140-TC; 84443-TC; 85025-TC; 87081-TC; 87086-TC; 87186-TC; J1200; J2060; J3490